=== PATIENT | male | born 1970 | race Caucasian/White ===

== ENCOUNTER 2017-10-21 17:21 | Emergency (ER) | payer BC, OTHER ==
[2017-10-21] MEDS ORDERED: ACETAMINOPHEN 325 MG TABLET PO ONE (18:18)
[2017-10-21] MEDS ORDERED: ONDANSETRON HCL INJ/PF 4 MG/2 ML SDV ONE (18:41)
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
[2017-10-21 19:10] LABS: ABSOLUTE BASOPHILS # (AUTO) 0.1 10^3/uL (0.0-0.2); ABSOLUTE EOSINOPHILS # (AUTO) 0.1 10^3/uL (0.0-0.6); ABSOLUTE LYMPHOCYTES (AUTO) 1.7 10^3/uL (0.5-4.7); ABSOLUTE MONOCYTES (AUTO) 0.8 10^3/uL (0.1-1.4); ABSOLUTE NEUT (AUTO) 8.7 10^3/uL (1.7-8.2); BASOPHILS % (AUTO) 0.5 % (0-2); EOSINOPHILS % (AUTO) 0.7 % (0-6); HEMATOCRIT 43.8 % (37.9-51.0); HEMOGLOBIN 14.8 g/dL (13.5-17.0); LYMPHOCYTES % (AUTO) 15.2 % (13-45); MEAN CORPUSCULAR HEMOGLOBIN 29.3 pg (27.0-33.4); MEAN CORPUSCULAR HGB CONC 33.9 g/dL (32.0-36.0); MEAN CORPUSCULAR VOLUME 87 fl (80-97); MONOCYTES % (AUTO) 6.7 % (3-13); PLATELET COUNT 224 10^3/uL (150-450); RED BLOOD COUNT 5.06 10^6/uL (4.35-5.55); RED CELL DISTRIBUTION WIDTH 13.7 % (11.5-14.0); SEGMENTED NEUTROPHILS % (AUTO) 76.9 % (42-78); TOTAL CELLS COUNTED % (AUTO) 100 %; WHITE BLOOD COUNT 11.3 10^3/uL (4.0-10.5)
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
[2017-10-21 19:32] LABS: ALANINE AMINOTRANSFERASE 44 U/L (21-72); ALBUMIN 4.8 g/dL (3.5-5.0); ALKALINE PHOSPHATASE 190 U/L (38-126); ANION GAP 13 (5-19); ASPARTATE AMINO TRANSFERASE 44 U/L (17-59); BILIRUBIN,DIRECT 0.5 mg/dL (0.0-0.4); BILIRUBIN,TOTAL 0.6 mg/dL (0.2-1.3); BLOOD UREA NITROGEN 23 mg/dL (7-20); CALCIUM 10.4 mg/dL (8.4-10.2); CARBON DIOXIDE 26 mmol/L (22-30); CHLORIDE 103 mmol/L (98-107); GLUCOSE 132 mg/dL (75-110); POTASSIUM 4.3 mmol/L (3.6-5.0); SODIUM 142.2 mmol/L (137-145)
[2017-10-21] MEDS ORDERED: LIDOCAINE 5% (700 MG) TRANSDERMAL ADH..PATCH TP ONE (19:37)
[2017-10-21 20:04] VITALS: BP 190/103
== END 2017-10-21 20:08 | disposition short-term general hospital (02) ==
LOC: ER 17:21
DX: S22.42XA Multiple fractures of ribs, left side, initial encounter for closed fracture (principal); S27.321A Contusion of lung, unilateral, initial encounter; S42.115A Nondisplaced fracture of body of scapula, left shoulder, initial encounter for closed fracture; V28.4XXA Motorcycle driver injured in noncollision transport accident in traffic accident, initial encounter; I10 Essential (primary) hypertension; Z87.891 Personal history of nicotine dependence
CPT/HCPCS: 99285; 36415; 85025; 80053; 73010; 73030; 71260; 72125; 74177; J2405

== ENCOUNTER 2017-11-08 11:24 | Observation (INO) | payer SELFPAY ==
[2017-11-08] MEDS ORDERED: LABETALOL HCL INJ 20 MG/4 ML DISP.SYRIN IV ONE ×2 (11:51→12:21)
--- NOTE | 2017-11-08 11:54 | ER Document Report ---
ED Medical Screen (RME) - General Chief Complaint: High Blood Pressure Stated Complaint: BLOOD PRESSURE PROBLEMS Time Seen by Provider: 11/08/17 11:47 Notes: RME DISCLOSURE I have seen this patient as part of a Rapid Medical Evaluation and, if applicable, placed any initially appropriate orders. The patient will be seen and fully evaluated, including a full history and physical exam, by a provider ( in Main ED or Fast Track) when a room becomes available. 47-year-old male here with complaints of right sided headache radiating from forehead to the occiput ongoing for the past 2 weeks but significantly worse over the past 2 days. He also complains of "my eyes are crossed" and tunnel vision. Family member at the bedside states that his eyes have never been crossed. He has no new numbness tingling focal weakness facial asymmetry speech slurring. He has never been diagnosed with high blood pressure nor does he take blood pressure medications, now or in the past. TRAVEL OUTSIDE OF THE [place] IN LAST 30 DAYS: No - Related Data Allergies/Adverse Reactions: No Known Allergies Allergy (Verified 11/08/17 11:26) Past Medical History - Social History Chew tobacco use (# tins/day): No Frequency of alcohol use: Occasional Drug Abuse: None Renal/ Medical History: Reports: Hx Kidney Stones. Denies: Hx Peritoneal Dialysis Past Surgical History: Reports: Hx Orthopedic Surgery - left ACL replaced Physical Exam - Vital signs Vitals: Temp Pulse Resp BP Pulse Ox 98.7 F 99 16 206/120 H 98 11/08/17 11:35 11/08/17 11:35 11/08/17 11:35 11/08/17 11:35 11/08/17 11:35 Course - Vital Signs Vital signs: Temp Pulse Resp BP Pulse Ox 98.7 F 99 16 206/120 H 98 11/08/17 11:35 11/08/17 11:35 11/08/17 11:35 11/08/17 11:35 11/08/17 11:35
--- NOTE | 2017-11-08 12:38 | RADIOLOGY REPORT (SQ) ---
EXAM DESCRIPTION: CT HEAD WITHOUT COMPLETED DATE/TIME: 11/08/2017 12:21 pm REASON FOR STUDY: R sided REYES and vision change BP 208; eval bleed COMPARISON: None. TECHNIQUE: Axial images acquired through the brain without intravenous contrast. Images reviewed wi th bone, brain and subdural windows. Images stored on PACS. All CT scanners at this facility use dose modulation, iterative reconstruction, and/or weight based d osing when appropriate to reduce radiation dose to as low as reasonably achievable (ALARA). [facility]: Dose Right [facility]: CareDose [facility]: Dose Right [facility]: Teradose 4D [facility]: [employer] RADIATION DOSE: CT Rad equipment meets quality standard of care and radiation dose reduction techniq ues were employed. CTDIvol: 64.6 mGy. DLP: 1163 mGy-cm. mGy. LIMITATIONS: None. FINDINGS: VENTRICLES: Normal size and contour. CEREBRUM: No masses. No hemorrhage. No midline shift. No evidence for acute infarction. Normal gra y/white matter differentiation. No areas of low density in the white matter. CEREBELLUM: No masses. No hemorrhage. No alteration of density. No evidence for acute infarction. EXTRAAXIAL SPACES: No fluid collections. No masses. ORBITS AND GLOBE: No intra- or extraconal masses. Normal contour of globe without masses. CALVARIUM: No fracture. PARANASAL SINUSES: No fluid or mucosal thickening. SOFT TISSUES: No mass or hematoma. OTHER: No other significant finding. IMPRESSION: NORMAL BRAIN CT WITHOUT CONTRAST. EVIDENCE OF ACUTE STROKE: NO. COMMENT: Quality ID # [id number]: Final reports with documentation of one or more dose reduction techniques (e.g., Automated exposure control, adjustment of the mA and/or kV according to patient size, use of iterative reconstruction technique) TECHNICAL DOCUMENTATION: JOB ID: [id number] [employer]- All Rights Reserved Reading location - IP/workstation name: [id number]
[2017-11-08 12:44] LABS: ABSOLUTE BASOPHILS # (AUTO) 0.1 10^3/uL (0.0-0.2); ABSOLUTE EOSINOPHILS # (AUTO) 0.3 10^3/uL (0.0-0.6); ABSOLUTE LYMPHOCYTES (AUTO) 2.1 10^3/uL (0.5-4.7); ABSOLUTE MONOCYTES (AUTO) 0.6 10^3/uL (0.1-1.4); ABSOLUTE NEUT (AUTO) 4.9 10^3/uL (1.7-8.2); BASOPHILS % (AUTO) 0.8 % (0-2); EOSINOPHILS % (AUTO) 3.7 % (0-6); HEMATOCRIT 46.7 % (37.9-51.0); HEMOGLOBIN 15.8 g/dL (13.5-17.0); LYMPHOCYTES % (AUTO) 26.6 % (13-45); MEAN CORPUSCULAR HEMOGLOBIN 28.7 pg (27.0-33.4); MEAN CORPUSCULAR HGB CONC 33.8 g/dL (32.0-36.0); MEAN CORPUSCULAR VOLUME 85 fl (80-97); MONOCYTES % (AUTO) 7.5 % (3-13); PLATELET COUNT 237 10^3/uL (150-450); RED CELL DISTRIBUTION WIDTH 13.3 % (11.5-14.0); SEGMENTED NEUTROPHILS % (AUTO) 61.4 % (42-78); TOTAL CELLS COUNTED % (AUTO) 100 %
[2017-11-08 12:54] LABS: ANION GAP 12 (5-19); BLOOD UREA NITROGEN 23 mg/dL (7-20); CALCIUM 10.5 mg/dL (8.4-10.2); CARBON DIOXIDE 25 mmol/L (22-30); CHLORIDE 104 mmol/L (98-107); GLUCOSE 100 mg/dL (75-110); POTASSIUM 4.6 mmol/L (3.6-5.0); SODIUM 141.4 mmol/L (137-145)
[2017-11-08] MEDS ORDERED: CLONIDINE HCL 0.1 MG TABLET PO ONE (13:04)
[2017-11-08] MEDS ORDERED: LOSARTAN POTASSIUM 50 MG TABLET PO ONE (13:05)
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
[2017-11-08] MEDS ORDERED: OXYCODONE-ACETAMINOPHEN 5-325 MG TABLET PO PRN (15:26)
[2017-11-08] MEDS ORDERED: AMLODIPINE BESYLATE 5 MG TABLET PO ONE ×2 (16:00)
[2017-11-08] MEDS ORDERED: LORAZEPAM 1 MG TABLET PO PRN (17:10)
[2017-11-08] MEDS: HYDRALAZINE HCL INJ/PF 20 MG/1 ML SDV IV PRN (20:14)
--- NOTE | 2017-11-08 21:33 | RADIOLOGY REPORT (SQ) ---
EXAM DESCRIPTION: MRI HEAD WITHOUT COMPLETED DATE/TIME: 11/08/2017 9:01 pm REASON FOR STUDY: vision changes- COMPARISON: CT dated 11/08/2017. TECHNIQUE: Multiplanar imaging includes non-contrasted T1, T2, FLAIR, and diffusion with ADC map seq uences. Images stored on PACS. LIMITATIONS: None. FINDINGS: ANATOMY: No anomalies. Normal vascular flow voids. Pituitary fossa normal. CSF SPACES: Normal in size and contour. No hemorrhage. CEREBRUM: Sulci and gyri normal in size and contour. Normal white matter signal on FLAIR imaging. No evidence of hemorrhage, mass, or extraaxial fluid collection. POSTERIOR FOSSA: No signal alteration. No hemorrhage. No edema, masses or mass effect. Internal kayla tory canals, cerebello-pontine angles, mastoids normal. DIFFUSION IMAGING: Negative for acute or sub-acute infarction. ORBITS: No masses. Globes normal. PARANASAL SINUSES: No fluid levels. Mucosa normal. OTHER: No other significant finding. IMPRESSION: NORMAL MRI OF THE BRAIN WITHOUT INTRAVENOUS GADOLINIUM CONTRAST. EVIDENCE OF ACUTE STROKE: NO. TECHNICAL DOCUMENTATION: JOB ID: [id number] [employer]- All Rights Reserved Reading location - IP/workstation name: [email or web address]
[2017-11-08 21:56] LABS: URINE AMPHETAMINES SCREEN NEGATIVE; URINE BARBITURATES SCREEN NEGATIVE; URINE BENZODIAZEPINES SCREEN NEGATIVE; URINE COCAINE SCREEN NEGATIVE; URINE MARIJUANA (THC) SCREEN NEGATIVE; URINE METHADONE SCREEN NEGATIVE; URINE PHENCYCLIDINE SCREEN NEGATIVE
--- NOTE | 2017-11-08 22:00 | EKG REPORT ---
SEVERITY:- ABNORMAL ECG - SINUS RHYTHM PROBABLE INFERIOR INFARCT, OLD : Confirmed by: Fátima Frederick 08-Nov-2017 21:59:38
[2017-11-09] MEDS: ACETAMINOPHEN 325 MG TABLET PO PRN ×2 (04:25→10:09)
[2017-11-09] MEDS: HYDRALAZINE HCL INJ/PF 20 MG/1 ML SDV IV PRN ×2 (04:25→09:26)
[2017-11-09] MEDS ORDERED: ENOXAPARIN SODIUM INJ 40 MG/0.4 ML DISP.SYRIN SUBCUT SCH (10:00)
[2017-11-09] MEDS: AMLODIPINE BESYLATE 5 MG TABLET PO SCH (10:07)
[2017-11-09] MEDS: ASPIRIN 81 MG TABLET, ENT COATED PO SCH (10:08)
[2017-11-09] MEDS: LOSARTAN POTASSIUM 50 MG TABLET PO SCH (10:09)
--- NOTE | 2017-11-09 17:33 | PDOC PROGRESS REPORT ---
Subjective Progress Note for:: 11/09/17 Subjective:: The patient was admitted for urgent hypertension which led to tunnel vision. Head CT, MRI of the brain are unremarkable. Echocardiogram was performed but the results are pending. Patient is also noted to be hyper calcemic. The patient woke up with a headache this morning at 03 100. He states the headache is dull. It is in the midline and extends from the bottom of his neck to the top of his forehead. He states that he gets this frequently when he sleeps in the wrong position. Reason For Visit: HYPERTENSION URGENCY Physical Exam Vital Signs: Temp Pulse Resp BP Pulse Ox 97.6 F 100 16 134/95 H 97 11/09/17 16:00 11/09/17 16:00 11/09/17 16:00 11/09/17 16:00 11/09/17 16:00 Intake & Output 11/08/17 11/09/17 11/10/17 06:59 06:59 06:59 Intake Total 110 Balance 110 Weight 101 kg Additional comments: Patient is in no distress. He appears to be his stated age. In fact, he appears to be fairly healthy. His lungs are clear to auscultation bilaterally. His cardiac exam is regular without murmurs, gallops or rubs. The abdomen is soft, flat and benign. The lower extremities are unremarkable. The skin is warm, dry and intact without lesions or rashes. Results Laboratory Results: 11/09/17 08:39 PTH Intact 9.4 L 11/08/17 11/08/17 17:45 22:10 Troponin I < 0.012 < 0.012 Impressions: Head MRI 11/08/17 00:00 IMPRESSION: NORMAL MRI OF THE BRAIN WITHOUT INTRAVENOUS GADOLINIUM CONTRAST. EVIDENCE OF ACUTE STROKE: NO. Head CT 11/08/17 11:51 IMPRESSION: NORMAL BRAIN CT WITHOUT CONTRAST. EVIDENCE OF ACUTE STROKE: NO. Assessment & Plan - Diagnosis (1) Hypercalcemia Is this a current diagnosis for this admission?: Yes Plan: Intact PTH is pending. (2) Hypertensive urgency Is this a current diagnosis for this admission?: Yes Plan: Patient is currently receiving amlodipine and losartan with good effect. Echocardiogram is pending. I plan on discharging the patient once echocardiogram results are known provided no additional workup is needed. Today , we did discuss risk factor modification. I explained to the patient that he should drink no more than 2 alcoholic beverages per day, preferably only 1 alcoholic beverage. I explained that this is either 1 beer or 2 ounces of alcohol. We discussed salt intake. The patient eats out a lot and uses quite a bit of salt. He is going to try to cut down on his salt intake. I told him that ideally he should consume no more than 1500 mg of salt per day but he should strive for 2 g of salt per day. I also told him to cut back on caffeine to 1-2 cups of coffee per day. I asked the patient if he would like a dietary consult and he declined. (3) Ribs, multiple fractures Is this a current diagnosis for this admission?: Yes Plan: Continue pain control. - Time Time Spent with patient: 15-24 minutes - Inpatient Certification Medical Necessity: Risk of Complication if Not Cared For in Hospital, Risk of Diagnosis Which Will Require Inpatient Eval/Care/Monitoring
--- NOTE | 2017-11-09 18:24 | XCELERA REPORT ---
[address] [address] Transthoracic Echocardiogram Report Name: ROBBIE GREEN Age: 47 yrs Gender: Male : 1970 Patient Status: Inpatient Patient Location: [address] [place] [address] Study Date: 11/09/2017 09:14 AM Height: 71 in Weight: 222 lb BSA: 2.2 m2 Procedure: A complete two-dimensional transthoracic echocardiogram was performed (2D, M-mode, spectral and color flow Doppler). The study was technically adequate with some images being suboptimal in quality. Reason For Study: Hypertensive crisis Ordering Physician: SULY OLVERA Performed By: Mayuri Cline Interpretation Summary The left ventricular ejection fraction is normal. There is mild to moderate concentric left ventricular hypertrophy. Doppler measurements suggest pseudonormalized left ventricular relaxation, which is associated with grade II/IV or mild to moderate diastolic dysfunction The left ventricle is grossly normal size. Wall motion cannot be accurately commented on, but no definite regional wall motion abnormalities noted. The right ventricular systolic function is normal. The left atrial size is normal. The right atrium is normal. There is a trace amount of mitral regurgitation There is no mitral valve stenosis. No aortic regurgitation is present. There is no aortic valve stenosis There is no tricuspid stenosis. No tricuspid regurgitation. The aortic root is not well visualized but is probably normal size. The inferior vena cava was not well visualized There is no pericardial effusion. MMode/2D Measurements & Calculations RVDd: 1.9 cm LVIDd: 3.5 cm FS: 38.2 % Ao root diam: 2.9 cm IVSd: 1.4 cm LVIDs: 2.1 cm EDV(Teich): 49.2 ml LVPWd: 1.4 cm ESV(Teich): 15.0 ml Ao root area: 6.5 cm2 EF(Teich): 69.5 % LA dimension: 2.9 cm Doppler Measurements & Calculations MV E max cristal: MV P1/2t max cristal: Ao V2 max: LV V1 max P.9 cm/sec 83.4 cm/sec 135.7 cm/sec 3.5 mmHg MV A max cristal: MV P1/2t: 61.6 msec Ao max PG: LV V1 max: 80.5 cm/sec 7.4 mmHg 93.3 cm/sec MV E/A: 1.0 MVA(P1/2t): 3.6 cm2 MV dec slope: 396.8 cm/sec2 PA V2 max: 104.1 cm/sec PA max P.3 mmHg Left Ventricle The left ventricle is grossly normal size. There is mild to moderate concentric left ventricular hypertrophy. The left ventricular ejection fraction is normal. Doppler measurements suggest pseudonormalized left ventricular relaxation, which is associated with grade II/IV or mild to moderate diastolic dysfunction. Wall motion cannot be accurately commented on, but no definite regional wall motion abnormalities noted. Right Ventricle The right ventricle is grossly normal size. There is normal right ventricular wall thickness. The right ventricular systolic function is normal. Atria The right atrium is normal. The left atrial size is normal. Interarterial septum not well visualized and not well dopplered. Cannot comment on ASD/PFO presence. Mitral Valve The mitral valve is grossly normal. There is no mitral valve stenosis. There is a trace amount of mitral regurgitation. Aortic Valve The aortic valve is grossly normal. There is no aortic valve stenosis. No aortic regurgitation is present. Tricuspid Valve The tricuspid valve is not well visualized secondary to technical limitations. There is no tricuspid stenosis. No tricuspid regurgitation. Pulmonic Valve The pulmonic valve is not well visualized. Great Vessels The aortic root is not well visualized but is probably normal size. The inferior vena cava was not well visualized. Effusions There is no pericardial effusion. : SULY OLVERA Shyamal
[2017-11-10] MEDS: AMLODIPINE BESYLATE 5 MG TABLET PO SCH (09:20)
[2017-11-10] MEDS: ASPIRIN 81 MG TABLET, ENT COATED PO SCH (09:21)
[2017-11-10] MEDS: LOSARTAN POTASSIUM 50 MG TABLET PO SCH (09:21)
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
[2017-11-10 13:48] VITALS: BP 156/98
--- NOTE | 2017-11-11 10:47 | EKG REPORT ---
SEVERITY:- OTHERWISE NORMAL ECG - SINUS RHYTHM LEFT AXIS DEVIATION : Confirmed by: Fátima Frederick 11-Nov-2017 10:45:14
== END 2017-11-10 14:29 | disposition home or self-care (01) ==
LOC: ER 11:24 → INTOOBSV 15:02 → EH 15:02 → 5 18:06
PROVIDERS: ADMIT Emergency Medicine; ATTEND Emergency Medicine
DX: I16.0 Hypertensive urgency (principal); E83.52 Hypercalcemia; S22.49XS Multiple fractures of ribs, unspecified side, sequela; V29.9XXS Motorcycle rider (driver) (passenger) injured in unspecified traffic accident, sequela; F10.10 Alcohol abuse, uncomplicated; H57.02 Anisocoria; R51 Headache; H53.489 Generalized contraction of visual field, unspecified eye; Z80.8 Family history of malignant neoplasm of other organs or systems; Z87.891 Personal history of nicotine dependence
CPT/HCPCS: 93005 ×2; 99285; 96374; 36415 ×3; 82310; 82550; 85025; 80048; 84484; 80307; 82397; 83970; 93306; 70551; 70450; 93010 ×2; J0360 ×2; J3490; G0378